=== PATIENT | female | born 1970 | race Caucasian/White ===

== ENCOUNTER 2018-02-17 13:55 | Emergency (ER) | payer OTHER, MEDICAID ==
--- NOTE | 2018-02-17 14:21 | EDPHY ---
General Time Seen by Provider: 02/17/18 14:14 Narrative: CHIEF COMPLAINT: High blood pressure HISTORY OF PRESENT ILLNESS: Patient presents with complaints of high blood pressure. She says that she has had intermittent measurements of elevated blood pressure since June. She has been tracking this with immediate checks but no formal evaluation or intervention. No medications. She has no chest pain but she has had some mild chest pressure at times. Occasional headache. No neck stiffness. No trauma or injury. No urinary complaints. When she does have the headache is very mild , gradual onset. No sudden onset or thunderclap type headache. No other associated complaints or modifying factors. REVIEW OF SYSTEMS: Ten systems reviewed and are negative unless otherwise noted in the HPI PCP: None established SPECIALISTS: None PAST MEDICAL HISTORY: Uncomplicated with orthopedic injuries only PAST SURGICAL HISTORY: No recent surgical history SOCIAL HISTORY: Nonsmoker. Works as an occupational therapist. Relocated from [place] last year FAMILY HISTORY: Noncontributory EXAMINATION General Appearance: Alert, no distress Head: normocephalic, atraumatic Eyes: EOM symmetric. Pupils equal and round, no conjunctival pallor or injection ENT, Mouth: Mucous membranes moist Neck: Normal inspection, supple, non-tender Respiratory: Lungs are clear to auscultation Cardiovascular: Regular rate and rhythm. No murmur Gastrointestinal: Abdomen is soft and nontender Back: non-tender, no bony abnormalities Neurological: GCS 15. A&O, nonfocal, normal gait. No pronator drift. No finger to nose. Skin: Warm and dry, no rash Extremities: Nontender, no pedal edema Psychiatric: Mood and affect normal DIFFERENTIAL DIAGNOSES: Including but not limited to hypertensive emergency, hypertensive urgency, hypertension, ACS, acute kidney injury MDM: 2:20 p.m. Elevated blood pressure measurements with some generalized discomfort, malaise and intermittent headache and chest pressure. No chest pain at this time. No headache at this time. She has had no formal diagnosis hypertension. She has no neck pain or stiffness. Her vital signs here do reveal hypertension but no tachycardia. I have ordered laboratory studies, EKG and chest x-ray. 3:03 p.m. Notified by radiologist Dr. Coleman. No acute findings. There are findings as noted on a chest x-ray. Patient does not have any history of cancer. 3:20 p.m. Put acute troponin is negative. CBC is unremarkable. Remainder laboratory studies pending. 3:[address] Gaspar has discussed the case with Dr. Jaramillo. He recommends diuretic with either a calcium channel main or [place] inhibitor, pending the patient's chemistry result. 3:40 p.m. Chemistry is unremarkable, potassium 3.5. I discussed case with Dr. Gaspar. He recommends that we start the patient on lisinopril 20 mg once daily and spironolactone 12.5 mg once daily. She will be referred to the on-call primary care physician and Dr. Jaramillo for cardiology follow-up. We discussed ED precautions for chest pain, headache, neuro complaints. She is comfortable this plan and discharged home stable condition. SUPERVISION: Patient was independently examined, but I discussed the case with my secondary supervising physician Dr. Gaspar - Diagnostics Imaging Results: Imaging Impressions Chest X-Ray 02/17/18 14:21 Impression: 1. No acute findings in the chest. 2. Indeterminant small sclerotic osseous foci. In the absence of history of malignancy, these are statistically likely to represent bone islands, with sclerotic metastases a much less likely possibility. Findings discussed with Tripp Wheeler 02/17/2018 at 15:03. - History Smoking Status: Never smoked - Objective Vital Signs: Initial Vital Signs Temperature (C) 98.4 F 02/17/18 14:04 Heart Rate 61 02/17/18 14:04 Respiratory Rate 18 02/17/18 14:04 Blood Pressure 190/107 H 02/17/18 14:04 O2 Sat (%) 98 02/17/18 14:04 O2 Delivery Mode Room Air Allergies/Adverse Reactions: No Known Allergies Allergy (Unverified 02/17/18 14:03) Home Medications: Medication Instructions Recorded Lisinopril [Zestril 20 mg (*)] 20 mg PO DAILY #30 tab 02/17/18 Spironolactone [Aldactone 25 MG 25 mg PO DAILY #30 tab 02/17/18 (*)] Laboratory Results: Laboratory Results 02/17/18 15:00 02/17/18 15:00 02/17/18 02/17/18 02/17/18 15:05 15:00 15:00 WBC RBC Hgb Hct MCV MCH MCHC RDW Plt Count MPV Neut % (Auto) Lymph % (Auto) [place] % (Auto) Eos % (Auto) Baso % (Auto) Nucleat RBC Rel Count Absolute Neuts (auto) Absolute Lymphs (auto) Absolute Monos (auto) Absolute Eos (auto) Absolute Basos (auto) Absolute Nucleated RBC Immature Gran % Immature Gran # PT INR APTT Sodium 140 mEq/L mEq/L (135-145) Potassium 3.5 mEq/L mEq/L (3.3-5.0) Chloride 104 mEq/L mEq/L (97-110) Carbon Dioxide 24 mEq/l mEq/l (22-31) Anion Gap 12 mEq/L mEq/L (8-16) BUN 13 mg/dL mg/dL (7-23) Creatinine 0.8 mg/dL mg/dL (0.6-1.0) Estimated GFR > 60 Glucose 81 mg/dL mg/dL (70-100) Calcium 9.3 mg/dL mg/dL (8.5-10.4) Total Bilirubin 0.6 mg/dL mg/dL (0.1-1.4) Conjugated Bilirubin 0.4 mg/dL mg/dL (0.0-0.5) Unconjugated Bilirubin 0.2 mg/dL mg/dL (0.0-1.1) AST 36 IU/L IU/L (14-46) ALT 38 IU/L IU/L (9-52) Alkaline Phosphatase 48 IU/L IU/L (38-126) POC Troponin I 0.00 ng/mL ng/mL (0.00-0.08) NT-Pro-B Natriuret Pep 249 pg/mL H pg/mL (0-125) Total Protein 8.0 g/dL g/dL (6.3-8.2) Albumin 4.6 g/dL g/dL (3.5-5.0) Beta HCG, Qual NEGATIVE 02/17/18 02/17/18 15:00 15:00 WBC 8.98 10^3/uL 10^3/uL (3.80-9.50) RBC 4.73 10^6/uL 10^6/uL (4.18-5.33) Hgb 14.8 g/dL g/dL (12.6-16.3) Hct 43.1 % % (38.0-47.0) MCV 91.1 fL fL (81.5-99.8) MCH 31.3 pg pg (27.9-34.1) MCHC 34.3 g/dL g/dL (32.4-36.7) RDW 11.8 % % (11.5-15.2) Plt Count 240 10^3/uL 10^3/uL (150-400) MPV 11.0 fL fL (8.7-11.7) Neut % (Auto) 51.9 % % (39.3-74.2) Lymph % (Auto) 39.3 % % (15.0-45.0) [place] % (Auto) 6.2 % % (4.5-13.0) Eos % (Auto) 1.9 % % (0.6-7.6) Baso % (Auto) 0.6 % % (0.3-1.7) Nucleat RBC Rel Count 0.0 % % (0.0-0.2) Absolute Neuts (auto) 4.66 10^3/uL 10^3/uL (1.70-6.50) Absolute Lymphs (auto) 3.53 10^3/uL H 10^3/uL (1.00-3.00) Absolute Monos (auto) 0.56 10^3/uL 10^3/uL (0.30-0.80) Absolute Eos (auto) 0.17 10^3/uL 10^3/uL (0.03-0.40) Absolute Basos (auto) 0.05 10^3/uL 10^3/uL (0.02-0.10) Absolute Nucleated RBC 0.00 10^3/uL 10^3/uL (0-0.01) Immature Gran % 0.1 % % (0.0-1.1) Immature Gran # 0.01 10^3/uL 10^3/uL (0.00-0.10) PT 12.7 SEC SEC (12.0-15.0) INR 0.93 (0.83-1.16) APTT 26.8 SEC SEC (23.0-38.0) Sodium Potassium Chloride Carbon Dioxide Anion Gap BUN Creatinine Estimated GFR Glucose Calcium Total Bilirubin Conjugated Bilirubin Unconjugated Bilirubin AST ALT Alkaline Phosphatase POC Troponin I NT-Pro-B Natriuret Pep Total Protein Albumin Beta HCG, Qual Point of Care Test Results: Chemistry 02/17/18 15:05 POC Troponin I 0.00 ng/mL ng/mL (0.00-0.08) Departure - Departure Disposition: Home, Routine, Self-Care Clinical Impression: Elevated systolic blood pressure reading with diagnosis of hypertension Condition: Good Instructions: Heart Healthy Diet (ED), DASH Eating Plan (ED), Hypertension (ED) Additional Instructions: 1. Medications as prescribed and discussed 2. Contact Dr. Nunes to establish primary care physician 3. Contact Dr. Jaramillo for outpatient cardiology consultation 4. ED precautions for worsening pressure, headache, chest pain or shortness of breath Referrals: Charla Nunes MD [[facility] [place]] - As per Instructions Vasquez Jaramillo MD [Medical Doctor] - As per Instructions Prescriptions: Lisinopril [Zestril 20 mg (*)] 20 mg PO DAILY #30 tab Spironolactone [Aldactone 25 MG (*)] 25 mg PO DAILY #30 tab
--- NOTE | 2018-02-17 14:52 | CPEKG ---
Heart Rate: 69 RR Interval: 870 P-R Interval: 136 QRSD Interval: 80 QT Interval: 432 QTC Interval: 463 P [place]: 50 QRS [place]: 62 T Wave [place]: 18 EKG Severity - NORMAL ECG - EKG Impression: SINUS RHYTHM Electronically Signed By: Emre Gaspar 17-Feb-2018 22:17:54
[2018-02-17 15:15] LABS: PLATELET COUNT 240 10^3/uL (150-400)
[2018-02-17 15:27] LABS: INR 0.93 (0.83-1.16); PROTIME(PATIENT) 12.7 SEC (12.0-15.0)
[2018-02-17 16:18] VITALS: BP 178/109
== END 2018-02-17 16:21 | disposition home or self-care (01) ==
DX: I10 Essential (primary) hypertension (principal)
CPT/HCPCS: 84484-PO